=== PATIENT | female | born 1950 | race African-American/Black ===

== ENCOUNTER 2016-02-10 11:36 | Emergency (ER) | payer BC ==
[2016-02-10 11:55] VITALS: BMI 39.9
[2016-02-10 12:33] LABS: BASOPHIL 1.4 % (0-2.0); EOSINOPHIL 2.1 % (0-4.5); MCH 23.4 pg (25.7-33.7); MCHC 31.1 g/dl (32.0-36.0); MEAN CELL VOLUME 75.5 fl (80-96); MEAN PLT VOLUME 8.5 fl (7.5-11.1); NEUTROPHILS 32.3 % (42.8-82.8); PLATELET COUNT 253 K/MM3 (134-434); RDW 15.9 % (11.6-15.6); WHITE BLOOD COUNT 7.3 K/mm3 (4.0-10.0)
[2016-02-10 12:45] LABS: INR 1.02 (0.82-1.09); PROTHROMBIN TIME (PATIENT) 11.2 SEC (9.98-11.88)
--- NOTE | 2016-02-10 12:48 | PDOC ---
History of Present Illness <Rochelle Gay - Last Filed: 02/10/16 14:03> - General History Source: Patient Exam Limitations: No Limitations <Cleo Leon - Last Filed: 02/11/16 08:26> - General Chief Complaint: Chest Pain Stated Complaint: HTN,CHEST PAIN Time Seen by Provider: 02/10/16 12:01 - History of Present Illness Initial Comments: 02/10/16 13:55 The patient is a 65 year old female with a past medical hx HTN of who presents to the ED complaining of one episode of right sided chest pain two hours ago. The patient states she was sitting down when the chest pain started, and describes the pain as sharp, right sided, and a 9/10 in severity. The patient states the pain lasted for 2 minutes and she has not had another episode since and is asymptomatic while in the ED. She notes she has not taken her blood pressure medication in 4 days. The patient denies any SOB, fever, chills, abdominal pain The patient denies nausea, vomiting, diarrhea The patient denies dysuria, frequency PCP: Dr. Dina Gudino Allergies: Aspirin Social: No toxic habits reported Surgical: None reported (Rochelle Gay) Past History <Rochelle Gay - Last Filed: 02/10/16 14:03> - Past Medical History HTN: Yes - Psycho/Social/Smoking Cessation Hx Suicidal Ideation: No Smoking History: Never smoked Information on smoking cessation initiated: No Hx Alcohol Use: No Drug/Substance Use Hx: No Substance Use Type: None <Cleo Leon - Last Filed: 02/11/16 08:26> - Past Medical History Allergies/Adverse Reactions: Allergies Allergy/AdvReac Type Severity Reaction Status Date / Time aspirin Allergy Verified 02/10/16 11:47 Home Medications: Ambulatory Orders Losartan/Hydrochlorothiazide [Losartan-Hctz 100-25 mg Tab] 1 each PO DAILY 02/09 Metoprolol Succinate [Toprol Xl -] 12.5 mg PO DAILY 02/10/16 Review of Systems - Review of Systems Able to Perform ROS?: Yes <Rochelle Gay - Last Filed: 02/10/16 14:03> <Cleo Leon - Last Filed: 02/11/16 08:26> - Review of Systems Comments:: 02/10/16 13:55 GENERAL/CONSTITUTIONAL: No: fever, chills, weakness, loss of appetite. HEAD, EYES, EARS, NOSE AND THROAT: No: change in vision, ear pain, discharge, sore throat, throat swelling. CARDIOVASCULAR: +Chest pain. No: lightheadedness, palpitations, syncope RESPIRATORY: No: cough, shortness of breath, wheezing, hemoptysis, stridor. GASTROINTESTINAL: No: nausea, vomiting, abdominal cramping, diarrhea, rectal bleeding, constipation. GENITOURINARY: No: dysuria, hematuria, frequency, urgency, flank pain. MUSCULOSKELETAL: No: back pain, neck pain, joint pain, muscle swelling or pain SKIN: No: lesions, pallor, rash or easy bruising. NEUROLOGIC: No: headache, vertigo, paresthesias, weakness ENDOCRINE: No: unexplained weight gain or loss HEMATOLOGIC/LYMPHATIC: No: anemia, easy bleeding, swelling nodes (Rochelle Gay ) *Physical Exam <Rochelle Gay - Last Filed: 02/10/16 14:03> <Cleo Leon - Last Filed: 02/11/16 08:26> - Vital Signs Last Vital Signs Temp Pulse Resp BP Pulse Ox 97.4 F L 91 H 16 164/90 97 02/10/16 19:10 02/10/16 19:10 02/10/16 19:10 02/10/16 19:10 02/10/16 19:10 - Physical Exam Comments: 02/10/16 13:56 GENERAL: The patient is in no acute distress. HEAD: Normal with no signs of trauma. EYES: PERRLA, EOMI, sclera anicteric, conjunctiva clear. ENT: Ears normal, nares patent, oropharynx clear without exudates. Moist mucous membranes. NECK: Normal range of motion, supple without lymphadenopathy, JVD, or masses. LUNGS: Breath sounds equal, clear to auscultation bilaterally. No wheezes, and no crackles. HEART:Regular rate and rhythm, normal S1 and S2 without murmur, rub or gallop. ABDOMEN: Soft, nontender, normoactive bowel sounds. No guarding, no rebound. EXTREMITIES: + Diffuse swelling, non pitting 3+ edema, no tenderness, no lesions. Normal range of motion. No clubbing or cyanosis. No erythema, or tenderness. NEUROLOGICAL: Cranial nerves II through XII grossly intact. Normal speech. No focal neurological deficits. MUSCULOSKELETAL: Back nontender to palpation, no CVA tenderness SKIN: Warm, Dry, normal turgor, no rashes or lesions noted (Rochelle Gay) Heart Score/ECG Review <Rochelle Gay - Last Filed: 02/10/16 14:03> #1 ECG reviewed & interpreted by me at: 13:43 <Cleo Leon - Last Filed: 02/11/16 08:26> #1 02/10/16 13:44 Twelve-lead EKG was performed and reviewed by me. There is normal sinus rhythm with a normal rate of 96 bpm. The axis is normal. The intervals are normal - pr: 168ms, QRS:86ms, QTc:457ms. There are no ST elevations or depressions. non specific T wave changes (Cleo Leon) ED Treatment Course - LABORATORY CBC & Chemistry Diagram: 02/10/16 12:20 02/10/16 12:20 <Rochelle Gay - Last Filed: 02/10/16 14:03> - LABORATORY CBC & Chemistry Diagram: 02/10/16 12:20 02/10/16 12:20 <Cleo Leon - Last Filed: 02/11/16 08:26> - ADDITIONAL ORDERS Additional order review: 02/10/16 12:20 RBC 4.84 MCV 75.5 L MCHC 31.1 L RDW 15.9 H MPV 8.5 Neutrophils % 32.3 L Lymphocytes % 56.6 H Monocytes % 7.6 Eosinophils % 2.1 Basophils % 1.4 - RADIOLOGY Radiology Studies Ordered: Category Date Time Status CHEST - PA [RAD] Stat Radiology 02/10/16 12:13 Completed Radiograph Interpretation: 02/10/16 14:03 Chest X-Ray Comparison study March 09, 2008. Midline trachea. Mildly uncoiled thoracic aorta. The cardiac silhouette is not enlarged. No evidence of vascular congestion. No evidence of pulmonary infiltrates, atelectasis, pleural effusion, or pneumothorax. Degenerative changes are noted in the thoracic spine at several levels. Impression. No evidence of active pulmonary disease. Reported By: Spencer Doty MD 02/10/16 2434 (Rochelle Gay) Medical Decision Making <Rochelle Gay - Last Filed: 02/10/16 14:03> <Cleo Leon - Last Filed: 02/11/16 08:26> - Medical Decision Making 02/10/16 13:[address] Gudino at 1343, awaiting call back. Dr. Gudino called back at 1346. Patients case was discussed. (Rochelle Gay) 02/10/16 12:48 A portion of this note was documented by scribe services under my direction. I have reviewed the details of the note, within reason, and agree with the documentation with the following case summary and management plan written by me. Nursing documentation reviewed and incorporated into medical decision making This is a 65 yo F with a history of HTN presenting to the ER with a complaint of chest pain Pt states her symptoms began at rest while at work Located on the right side of the chest Described as sharp, rated 02/10/16 13:19 Laboratory Tests 02/10/16 02/10/16 12:20 12:20 WBC 7.3 Hgb 11.3 Hct 36.5 Plt Count 253 Neutrophils % 32.3 L Lymphocytes % 56.6 H BUN 11 Creatinine 0.7 Random Glucose 87 Creatine Kinase 93 Troponin I < 0.02 02/10/16 13:40 Pt states she would like to go home She states that she has a prior appointment I have explained the importance of repeat troponin in 6 hours Will sign out AMA Will contact Dr. Gudino Will send pt with copies of her labs and EKG 02/10/16 18:28 Pt willing to stay in the ER for repeat troponin Laboratory Tests 02/10/16 17:45 Creatine Kinase 86 Troponin I < 0.02 D dimer negative Trop negative x 2 Pt asked STILL to follow up with Dr Gudino next week for re evaluation (Cleo Leon) *DC/Admit/Observation/Transfer <Rochelle Gay - Last Filed: 02/10/16 14:03> - Discharge Dispostion Admit: No <Cleo Leon - Last Filed: 02/11/16 08:26> Diagnosis at time of Disposition: Chest pain Qualifiers: Chest pain type: unspecified Qualified Code(s): R07.9 - Chest pain, unspecified - Discharge Dispostion Disposition: HOME Condition at time of disposition: Improved - Referrals Referrals: Lan Amanda MD [Primary Care Provider] - Dina Gudino MD [Staff Physician] - - Patient Instructions Printed Discharge Instructions: DI for Chest Pain, DI for Atypical Chest Pain Additional Instructions: Shannon I am sorry that you were having chest pain today Thank you for coming in to the ER Your preliminary labs were normal but we would have liked to repeat those labs I have contacted Dr Gudino who would like to see you in the office Please call today for your follow up appointment within 1 week Return to the ER immediately for any other concerns or complaints - Post Discharge Activity Work/School Note: Back to Work - Attestations Scribe Attestion: 02/10/16 13:56 Documentation prepared by Rochelle Gay, acting as adjunct faculty for medical terminology for Cleo Leon MD/. (Rochelle Gay)
[2016-02-10 12:54] LABS: ALBUMIN 3.8 g/dl (3.4-5.0); ANION GAP 4 (8-16); BILIRUBIN,TOTAL 0.8 mg/dL (0.2-1.0); CALCIUM 8.9 mg/dL (8.5-10.1); CO2 30 mmol/L (21-32); CREATININE 0.7 mg/dL (0.55-1.02); GLUCOSE,RANDOM 87 mg/dL (74-106); SGOT/AST 16 U/L (15-37); SGPT/ALT 25 U/L (12-78); TOT PROT 7.9 g/dl (6.4-8.2)
[2016-02-10 12:56] LABS: ALK PHOS 84 U/L (45-117); TROPONIN I < 0.02 ng/ml (0.00-0.05)
--- NOTE | 2016-02-10 16:37 | EKG ---
Test Reason : Blood Pressure : / mmHG Vent. Rate : 096 BPM Atrial Rate : 096 BPM P-R Int : 168 ms QRS Dur : 086 ms QT Int : 362 ms P-R-T Axes : 067 -01 081 degrees QTc Int : 457 ms NORMAL SINUS RHYTHM MODERATE VOLTAGE CRITERIA FOR LVH, MAY BE NORMAL VARIANT NONSPECIFIC T WAVE ABNORMALITY ABNORMAL ECG WHEN COMPARED WITH ECG OF 09-MAR-2008 17:11, NONSPECIFIC T WAVE ABNORMALITY, WORSE IN INFERIOR LEADS Confirmed by ELIDIA CHASE MD ([id number]) on 02/10/2016 4:37:16 PM Referred By: Confirmed By:ELIDIA CHASE MD
[2016-02-10 18:19] LABS: TROPONIN I < 0.02 ng/ml (0.00-0.05)
[2016-02-10 19:14] VITALS: BP 164/90; PULSE 91; TEMP 97.4
== END 2016-02-10 19:29 | disposition home or self-care (01) ==
LOC: JER 11:36
DX: R07.9 Chest pain, unspecified (principal); I10 Essential (primary) hypertension
CPT/HCPCS: 36415; 71010-TC; 80053; 82550; 83880; 84484; 85025; 85379; 85610; 93005; 93010; 99283-25